=== PATIENT | male | born 1955 | race African-American/Black ===

== ENCOUNTER 2023-04-13 17:45 | Emergency (ER) | payer OTHER ==
[2023-04-13 18:23] VITALS: BP 158/88; PULSE 64; RESP 18; TEMP 98.2; BMI 27.1
[2023-04-13] MEDS ORDERED: ACETAMINOPHEN 500 MG TABLET (FP) PO ONE (19:55)
[2023-04-13] MEDS ORDERED: ACETAMINOPHEN 325 MG TABLET (FP) ONE (20:14)
[2023-04-13] MEDS ORDERED: DEXAMETHASONE SOD PHOSPHATE 10 MG/1 ML VIAL IM ONE (20:27)
[2023-04-13] MEDS ORDERED: DEXAMETHASONE SOD PHOSPHATE 10 MG/1 ML VIAL ONE (20:41)
== END 2023-04-13 20:55 | disposition home or self-care (01) ==
LOC: JER 17:45
PROC: 3E023GC Introduction of Other Therapeutic Substance into Muscle, Percutaneous Approach (ICD-10-PCS; principal; 2023-04-13)
DX: M19.042 Primary osteoarthritis, left hand (principal); M79.642 Pain in left hand
CPT/HCPCS: 73110-TC-LT-FY; 73130-TC-LT-FY; 82962; 93005; 93010; 99285-25; J1100